=== PATIENT | female | born 1980 | race American Indian/Alaskan Native ===

== ENCOUNTER 2024-03-31 22:23 | Emergency (ER) | payer BC, SELFPAY ==
[2024-03-31 22:24] VITALS: BMI 42.0
[2024-03-31 22:33] VITALS: BP 136/89; PULSE 102; RESP 19; TEMP 37.3; O2SAT 97
--- NOTE | 2024-03-31 23:14 | XR_ITS ---
Examination: PA lateral chest 2 views Technique: Upright PA lateral chest 2 views Exam date and time: March 31, 2024 11:20 PM Comparison July 29, 2023 Indications: Onset chest pain today Findings: Mild prominence left ventricle No pneumonia or pulmonary edema The osseous structures are intact Impression: Mild prominence left ventricle No pneumonia or pulmonary edema
--- NOTE | 2024-03-31 23:15 | PD.EDRME ---
Rapid Medical Screening Exam RME Arrival date/time: 03/31/24 22:23 43-year-old female with past medical history of fibromyalgia presents emergency department complaining of chest pain and palpitations that started this morning. Chief Complaint: Arrhythmia/Palpitations Vital signs: Vital Signs Temperature 99.2 F 03/31/24 22:33 Pulse Rate 102 H 03/31/24 22:33 Respiratory Rate 19 03/31/24 22:33 Blood Pressure 136/89 H 03/31/24 22:33 Pulse Oximetry (%) 97 03/31/24 22:33 Oxygen Delivery Method Room Air 03/31/24 22:33 Vital signs reviewed by provider: Yes
[2024-04-01 00:16] LABS: Basophils % (Auto) 0 % (0-2.5); Eosinophils # (Auto) 0.2 Thou/mm3 (0.0-0.5); Eosinophils % (Auto) 2 % (0-10); Hematocrit 39.5 % (36.0-46.0); Hemoglobin 13.8 g/dL (12.0-16.0); Immature Granulocytes % (Auto) 0 % (0-0); Immature Granulocytes Auto 0.02 Thou/mm3 (0.00-0.00); Lymphocytes # (Auto) 1.8 Thou/mm3 (1.0-4.8); Lymphocytes % (Auto) 24 % (10-50); Mean Corpuscular HGB Conc 34.9 g/dl (31.0-37.0); Mean Corpuscular Hemoglobin 30.7 pg (25.0-35.0); Mean Corpuscular Volume 88 fL (80-100); Monocytes # (Auto) 0.7 Thou/mm3 (0.0-0.8); Monocytes % (Auto) 9 % (0-12); Neutrophils # (Auto) 4.8 Thou/mm3 (1.8-7.7); Neutrophils % (Auto) 64 % (37-80); Nucleated Red Blood Cell % 0 /100 WBC (0); Platelet Count 271 Thou/mm3 (140-440); RDW Standard Deviation 39.8 fL (36.4-46.3); White Blood Count 7.5 Thou/mm3 (3.6-11.0)
[2024-04-01 00:24] VITALS: BP 141/96; PULSE 89; RESP 19; TEMP 37.2; O2SAT 99
[2024-04-01 00:45] LABS: Alanine Aminotransferase 10 U/L (10-49); Albumin, Serum 4.4 gm/dL (3.5-5.0); Albumin/Globulin Ratio 1.3 (1.2-2.2); Alkaline Phosphatase 64 U/L (46-116); Anion Gap 7 (7-16); Aspartate Amino Transferase 12 U/L (0-34); BUN/Creatinine Ratio 14 Ratio (12-20); Bilirubin,Total 0.3 mg/dL (0.3-1.2); Blood Urea Nitrogen 7 mg/dL (9-23); Calcium 9.7 mg/dL (8.3-10.6); Calcium (Corrected) 9.7 mg/dL (8.5-10.1); Carbon Dioxide 23.2 mMol/L (20.0-31.0); Chloride 107 mMol/L (98-107); Creatinine (Component) 0.5 mg/dL (0.6-1.3); Estimated Creatinine Clearance 150.3 mL/min (>60); Globulin 3.3 gm/dL (2.3-3.5); Glucose 101 mg/dL (74-106); Osmolality,Calculated 271 (275-295); Potassium 3.8 mMol/L (3.4-5.1); Sodium 137 mMol/L (136-145); Total Protein 7.7 gm/dL (5.7-8.2); Troponin I < 0.020 ng/mL (0.0-0.045); eGFR > 60 See Note
[2024-04-01 00:48] LABS: HCG,Qualitative Serum Negative
[2024-04-01 00:53] LABS: B-Type Natriuretic Peptide < 20 pg/mL (0-100)
[2024-04-01 00:57] LABS: LDH (Lactate Dehydrogenase) 108 U/L (120-246)
--- NOTE | 2024-04-01 01:34 | EDNOTE_ITS ---
ED Arrhythmia Palp. RME/HPI General Chief Complaint: Arrhythmia/Palpitations Stated Complaint: CHEST PAIN, PALPITATIONS Arrival date/time: 03/31/24 22:23 RME / HPI RME / HPI narrative: 03/31/24 22:23 43-year-old female with past medical history of fibromyalgia presents emergency department complaining of chest pain and palpitations that started this morning. ----- Dr. Griffith?s Main ED Evaluation: 43yo female presents to the ED for a chief complaint of palpitations x 1 day. Patient states her heart rate has been elevated at 119 and was concerned, so she came in for evaluation. She reports associated chest pain and a headache. She denies any shortness of breath, dizziness or any other associated symptoms. No known allergies. Patient states she feels better compared to when she initially came in. Related Data Allergies Allergy/AdvReac Type Severity Reaction Status Date / Time No Known Allergies Allergy Verified 12/30/23 01:30 Review of Systems Review of Systems Systems Reviewed: All systems reviewed, normal except as documented Narrative Review of Systems: Gen: No fever, no chills, no weight loss EYES: No discharge, no visual changes, no pain HEENT: No ear pain, no congestion, no sore throat PULM: No shortness of breath, no cough, no congestion CV: + chest pain, no dyspnea on exertion, + palpitations GI: No nausea, no vomiting, no diarrhea, no pain, no constipation : No frequency, no urgency, no dysuria Musc/skel: No joint pain, no back pain Skin: No rash Psyc: No hallucinations, no depression Heme/Lymph: No easy bleeding or bruising tendencies Neuro: No weakness, + headache Past Medical History Past Medical History CARDIAC: Positive Angina; Negative Cardiac Disorders or Congestive Heart Failure RESPIRATORY: Negative Chronic Obstructive Pulmonary Disease (COPD) or Asthma GASTROINTESTINAL: Positive Obesity GENITOURINARY: Negative Renal Disease ENDOCRINE: Negative Diabetes Mellitus Type 1 or Diabetes Mellitus Type 2 HEMATOLOGIC: Negative Sickle Cell Disease PSYCHO/SOCIAL: Positive Anxiety Social History SMOKING STATUS: Never smoker SUBSTANCE USE: does not use ED Exam Narrative Physical exam: GENERAL APPEARANCE: AxOx4, generally well-appearing, no acute distress. HEENT: NC, AT. MMM. EOMI, clear conjunctiva, oropharynx clear. NECK: Supple without lymphadenopathy. No stiffness or restricted ROM. HEART: Normal rate and regular rhythm, normal S1/S1, no m/r/g LUNGS: CTAB, moving air well. No crackles or wheezes are heard. ABDOMEN: Soft, nontender, nondistended with good bowel sounds heard. BACK: No midline C/T/L spine pain or deformity, No CVAT, no obvious deformity. EXTREMITIES: Without cyanosis, clubbing or edema. MUSCULOSKELETAL: FROM of all major joints, no chest tenderness NEUROLOGICAL: Grossly nonfocal. Alert and oriented, moving all 4 extremities. CN not formally tested but appear grossly intact. Observed to ambulate with normal gait. Skin: Warm and dry without any rash. Course Course Course Narrative: CXR is ordered for determining the etiology of palpitations. Quality Measures none Orders Category Date Time Status Bedside COVID-19 Antigen Test NOW Care 03/31/24 23:15 Active Bedside Influenza A&B Antigen Test NOW Care 03/31/24 23:15 Active EKG (ED ONLY) *Do not use* NOW Care 03/31/24 22:28 Completed EKG (ED Only) Stat Exams 03/31/24 22:28 Ordered XR chest 2V Stat Exams 03/31/24 23:14 Completed B-Type Natriuretic Peptide Stat Lab 03/31/24 23:55 Completed CBC Stat Lab 03/31/24 23:55 Completed Comprehensive Metabolic Panel Stat Lab 03/31/24 23:55 Completed Drug Screen,Urine Stat Lab 03/31/24 23:14 Ordered HCG,Qualitative Serum Stat Lab 03/31/24 23:55 Completed LDH (Lactate Dehydrogenase) Stat Lab 03/31/24 23:55 Completed Magnesium Stat Lab 03/31/24 23:55 Completed Partial Thromboplastin Time Stat Lab 03/31/24 23:55 Received Prothrombin Time with INR Stat Lab 03/31/24 23:55 Received Troponin I Stat Lab 03/31/24 23:55 Completed Urinalysis, C/S if Indicated Stat Lab 03/31/24 23:14 Ordered Vital Signs Vital signs: Vital Signs Temperature 99.2 F 03/31/24 22:33 Pulse Rate 102 H 03/31/24 22:33 Respiratory Rate 19 03/31/24 22:33 Blood Pressure 136/89 H 03/31/24 22:33 Pulse Oximetry (%) 97 03/31/24 22:33 Oxygen Delivery Method Room Air 03/31/24 22:33 Pulse ox is 97% on room air, which is normal according to my interpretation. Arrhythmia/Palpitations MDM Narrative MDM Narrative:: Scribe Attestation: I, June Joya, am scribing for and in the presence of Dr. Griffith. Patient data External records reviewed:: [facility] previous records (Per chart review, patient was seen here on 01/30/24 for the same complaint.) Clinical information provided by:: patient Social determinants that could affect healthcare access:: none Patient has the following chronic illnesses:: fibromyalgia How is presenting disease/condition affected by chronic disease/condition?: uneffected by Evaluation data The following diagnostics were reviewed and interpreted by me:: lab results, radiology exam(s) and EKG tracing(s) Lab and/or radiology exams considered but not ordered:: none Interpretation Summary: CBC is normal, CMP is normal, troponin is normal, magnesium is normal, HCG is negative, according to my interpretation. EKG done at 2232 shows sinus tachycardia, rate of 108, normal axis, normal intervals, no acute ST or T wave changes, no STEMI, according to my interpretation. ----- [facility] Report Signed Patient: KAMRAN PURDY Record#: [id number] Birthdate: 1980 Age/Sex: 43 / F Location: [facility] Attending Dr: Ordering Physician: Santana Epstein (FNP) Date of Service: 03/31/24 Procedure(s): XR chest 2V Accession Number(s): [id number] cc: Kalin Kenny MD; Santana Epstein (FNP)~ Examination: PA lateral chest 2 views Technique: Upright PA lateral chest 2 views Exam date and time: March 31, 2024 11:20 PM Comparison July 29, 2023 Indications: Onset chest pain today Findings: Mild prominence left ventricle No pneumonia or pulmonary edema The osseous structures are intact Impression: Mild prominence left ventricle No pneumonia or pulmonary edema Dictated By: Kalin Kenny MD Signed By: <Electronically signed by Kalin Kenny MD in [place]> 03/31/24 1181 Medications / Prescriptions Medications or Prescriptions considered but not ordered:: none Medication administrations:: none Consultations Consultation(s) initiated? (list below): No Diagnosis Differential diagnosis arrhythmia/palpitations: anxiety, sinus tachycardia, artial fibrillation and supraventricular tachycardia Most likely diagnosis given after review of the tests above:: see below Admission Indicated Admission indicated?: not indicated Admission Request Was there a request for admission?: No Disposition Plan Disposition Plan: Discharge Discharge Attestation Discharge Attestation: The patient and all family members were given an opportunity to ask questions and understood the discharge instructions. Discharge instructions specifically effects, indications for sooner follow up or return to the emergency department, and the expected course of current diagnosis. Patient condition: Stable Discharge Plan Plan Patient Disposition: HOME (Self Care) Prescriptions/Referrals Referrals: Jaye Mathis MD [Primary Care Provider] - In 1 week Problem List Clinical Impression: Heart palpitations Patient/Caregiver Discharge Instructions Education Materials: ED Palpitations Additional Instructions: Follow-up with your primary care doctor in 2 to 3 days for recheck. You can return to the emergency department sooner if symptoms worsen or if you notes any new, concerning issues. Print Language: Citizen Of [place] Stand Alone Forms: Michelle Award Info., Patient Portal Info Letter
[2024-04-01 01:36] LABS: Partial Thromboplastin Time 30.2 Seconds (22.0-36.0); Prothrombin Time 10.9 Seconds (9.0-12.2)
== END 2024-04-01 01:41 | disposition home or self-care (01) ==
PROVIDERS: Emergency Provider Emergency Medicine; PCP Internal Medicine
DX: R00.2 Palpitations (principal); R07.9 Chest pain, unspecified; R00.0 Tachycardia, unspecified
CPT/HCPCS: 36415; 71046; 80053; 80307; 81001; 83615; 83735; 83880; 84484; 84703; 85025; 85610; 85730; 93005; 99283

== ENCOUNTER 2024-05-23 02:53 | Emergency (ER) | payer BC, SELFPAY ==
[2024-05-23 02:54] VITALS: BMI 41.5
[2024-05-23 03:10] VITALS: BP 150/95; PULSE 67; RESP 18; TEMP 36.6; O2SAT 100
--- NOTE | 2024-05-23 03:13 | PD.EDRME ---
Rapid Medical Screening Exam RME Arrival date/time: 05/23/24 02:53 43 year old female present to ED for c/o of chest pain I have greeted and performed a focused initial assessment of this patient. A comprehensive ED assessment and evaluation of the patient, analysis of all test results, and completion of the medical decision making process will be conducted by additional ED providers. Chief Complaint: Chest Pain Time Seen by Provider: 05/23/24 03:01 Vital signs: Vital Signs Temperature 97.9 F 05/23/24 03:10 Pulse Rate 67 05/23/24 03:10 Respiratory Rate 18 05/23/24 03:10 Blood Pressure 150/95 H 05/23/24 03:10 Pulse Oximetry (%) 100 05/23/24 03:10 Oxygen Delivery Method Room Air 05/23/24 03:10
--- NOTE | 2024-05-23 03:14 | XR_ITS ---
Examination: PA lateral chest 2 views Technique: Upright PA lateral chest 2 views Exam date and time: May 23, 2024 0350 hrs. Comparison March 31, 2024 Indications: Onset chest pain today. Findings: Minimal prominence left ventricle Mild vascular congestion No lobar pneumonia or pulmonary edema Impression: Mild vascular congestion
[2024-05-23] MEDS: ASPIRIN 81 MG CHEW 324 MG PO (03:38)
[2024-05-23 03:58] LABS: Basophils # (Auto) 0.1 Thou/mm3 (0.0-0.2); Basophils % (Auto) 1 % (0-2.5); Eosinophils # (Auto) 0.3 Thou/mm3 (0.0-0.5); Eosinophils % (Auto) 3 % (0-10); Hematocrit 37.8 % (36.0-46.0); Hemoglobin 12.6 g/dL (12.0-16.0); Immature Granulocytes % (Auto) 0 % (0-0); Immature Granulocytes Auto 0.02 Thou/mm3 (0.00-0.00); Lymphocytes # (Auto) 3.8 Thou/mm3 (1.0-4.8); Lymphocytes % (Auto) 38 % (10-50); Mean Corpuscular HGB Conc 33.3 g/dl (31.0-37.0); Mean Corpuscular Hemoglobin 30.1 pg (25.0-35.0); Mean Corpuscular Volume 90 fL (80-100); Monocytes # (Auto) 0.7 Thou/mm3 (0.0-0.8); Monocytes % (Auto) 8 % (0-12); Neutrophils % (Auto) 51 % (37-80); Nucleated Red Blood Cell % 0 /100 WBC (0); Platelet Count 314 Thou/mm3 (140-440); RDW Standard Deviation 41.3 fL (36.4-46.3); Red Blood Count 4.19 Miln/mm3 (4.00-5.20); White Blood Count 9.9 Thou/mm3 (3.6-11.0)
[2024-05-23 04:25] LABS: Alanine Aminotransferase 15 U/L (10-49); Albumin, Serum 4.3 gm/dL (3.5-5.0); Albumin/Globulin Ratio 1.4 (1.2-2.2); Alkaline Phosphatase 56 U/L (46-116); Anion Gap 6 (7-16); Aspartate Amino Transferase 13 U/L (0-34); BUN/Creatinine Ratio 15 Ratio (12-20); Bilirubin,Total 0.2 mg/dL (0.3-1.2); Blood Urea Nitrogen 9 mg/dL (9-23); Calcium 9.9 mg/dL (8.3-10.6); Calcium (Corrected) 9.9 mg/dL (8.5-10.1); Carbon Dioxide 29.2 mMol/L (20.0-31.0); Chloride 104 mMol/L (98-107); Creatinine (Component) 0.6 mg/dL (0.6-1.3); Estimated Creatinine Clearance 124.6 mL/min (>60); Globulin 3.1 gm/dL (2.3-3.5); Glucose 106 mg/dL (74-106); Lipase 39 U/L (12-53); Osmolality,Calculated 276 (275-295); Potassium 3.8 mMol/L (3.4-5.1); Sodium 139 mMol/L (136-145); Total Protein 7.4 gm/dL (5.7-8.2); Troponin I < 0.020 ng/mL (0.0-0.045); eGFR > 60 See Note
[2024-05-23 04:44] LABS: HCG,Qualitative Serum Negative
--- NOTE | 2024-05-23 07:29 | EDNOTE_ITS ---
ED Chest Pain RME/HPI General Chief Complaint: Chest Pain Stated Complaint: CHEST PAIN Time Seen by Provider: 05/23/24 03:01 Arrival date/time: 05/23/24 02:53 RME / HPI RME / HPI narrative: 05/23/24 02:53 43 year old female present to ED for c/o of chest pain I have greeted and performed a focused initial assessment of this patient. A comprehensive ED assessment and evaluation of the patient, analysis of all test results, and completion of the medical decision making process will be conducted by additional ED providers. DR. JENN MENDOZA ED EVALUATION: 43 year old female presents to the Emergency Department with complaint of chest pain onset 2 days. Pain is intermittent, described as burning, sometimes pressure and rated 6-7/10 now. Pain radiates to her back. Patient also reports abdominal pain. Took Tums for pain, but no relief. Patient denies any of the following: nausea, vomiting, cough, congestion, or any other symptoms at this time. PMHx: Fibromyalgia, prediabetic, anxiety. Cholecystectomy. Social Hx: No tobacco, alcohol, or substance use. Related Data Previous Rx's ?Medication ?Instructions ?Recorded famotidine 40 mg tablet (Pepcid) 40 mg PO QDAY #30 tabs 05/23/24 Allergies Allergy/AdvReac Type Severity Reaction Status Date / Time No Known Allergies Allergy Verified 05/23/24 02:56 Review of Systems Review of Systems Systems Reviewed: All systems reviewed, normal except as documented Narrative Review of Systems: GEN: No fever, no chills, no weight loss EYES: No discharge, no visual changes, no pain HEENT: No ear pain, no congestion, no sore throat PULM: No shortness of breath, no cough, no congestion CV: + chest pain, no dyspnea on exertion, no palpitations GI: No nausea, no vomiting, no diarrhea, + abdominal pain, no constipation : No frequency, no urgency and no dysuria MUSC/SKEL: No joint pain, + back pain (from radiation) SKIN: No rash PSYCH: No hallucinations, no depression HEME/LYMPH: No easy bleeding or bruising tendencies NEURO: No weakness, no headache Past Medical History Past Medical History CARDIAC: Positive Angina PSYCHO/SOCIAL: Positive Anxiety Social History SMOKING STATUS: Never smoker SUBSTANCE USE: does not use ALCOHOL: Never ED Exam Narrative Physical exam: GENERAL APPEARANCE: Well hydrated, well nourished, in no acute distress. Appears a little anxious, but cooperative and very polite. VITALS: All vitals were reviewed and the pulse ox is 100% on room air which is normal according to my interpretation. HEENT: Normocephalic, atramatic, EOMI, EACs are patent. There is no bulge or retraction. Throat without erythema or exudate. Moist oromucosa. No jaundice NECK: Supple, no JVD or bruits. CARDIOVASCULAR: Heart regular without S3-S4 or murmur. No rubs or gallops. LUNGS/CHEST: Clear to auscultation bilaterally. No rales, rhonchi, or wheezing. Normal inspection. ABDOMEN: Soft, nontender, with normal bowel sounds. No pulsatile masses. No rebound, rigidity, or guarding. No incarcerated hernia. Normal inspection and palpation. EXTREMITIES: No edema, clubbing, or cyanosis. Intact CSM. Normal inspection and palpation. SKIN: Warm and dry without rashes. Normal inspection. MUSCULOSKELETAL: No gross deformity, full ROM all extremities. Normal inspection. NEURO: Alert and oriented x3. Cranial nerves II through XII grossly intact. There are no other motor or sensory deficits noted. PSYCHIATRIC: Normal mood and affect. No psychosis. Course Quality Measures none Orders Category Date Time Status EKG (ED ONLY) *Do not use* NOW Care 05/23/24 03:14 Completed EKG (ED Only) Stat Exams 05/23/24 03:14 Ordered XR chest 2V Stat Exams 05/23/24 03:14 Taken CBC Stat Lab 05/23/24 03:43 Completed CMP [Comprehensive Metabolic Panel] Stat Lab 05/23/24 03:43 Completed HCG,Qualitative Serum Stat Lab 05/23/24 03:43 Completed Lipase Stat Lab 05/23/24 03:43 Completed Mag [Magnesium] Stat Lab 05/23/24 03:43 Completed Troponin I Stat Lab 05/23/24 03:43 Completed Troponin I Stat Lab 05/23/24 07:04 Completed Aspirin Chew Med 05/23/24 03:14 Discontinued 324 mg PO X1 ONE Vital Signs Vital signs: Vital Signs Temperature 97.9 F 05/23/24 03:10 Pulse Rate 67 05/23/24 03:10 Respiratory Rate 18 05/23/24 03:10 Blood Pressure 150/95 H 05/23/24 03:10 Pulse Oximetry (%) 100 05/23/24 03:10 Oxygen Delivery Method Room Air 05/23/24 03:10 Chest Pain MDM Narrative MDM Narrative:: I, Susanne Reyes, am scribing for and in the presence of Dr. Fuentes. CBC is negative. CMP and lipase negative. Troponin negative twice. Magnesium negative. test is negative. Twelve-lead EKG that was done at 3:18 AM and interpreted by me: Normal sinus rhythm. Heart rate of 62. No ST elevation or depression. No PVC. No STEMI. Regular rate and rhythm. 2 view chest x-ray interpreted by me: Clear lungs. Heart normal. Mediastinum normal. Normal bones. Her symptomatology is suggestive of a gastric reflux. She said that she has been taking Tums with no improvement. But I will give her Maalox or Mylanta and Pepcid. She need to follow-up with PMD for further evaluation and care. Return to the emergency department if condition worsens or if new symptoms develop. There is no sign of PE. The patient is not hypoxic. And not tachycardic. Patient data External records reviewed:: [facility] previous records (Reviewed last ED visit dated 04/01/24, discharged with the following: Heart palpitations.) Clinical information provided by:: patient Social determinants that could affect healthcare access:: none Patient has the following chronic illnesses:: Fibromyalgia, prediabetic, anxiety. Cholecystectomy. How is presenting disease/condition affected by chronic disease/condition?: exacerbated by Evaluation data The following diagnostics were reviewed and interpreted by me:: lab results, radiology exam(s) and EKG tracing(s) Lab and/or radiology exams considered but not ordered:: none Interpretation Summary: See above under MDM narrative. Medications / Prescriptions Medications or Prescriptions considered but not ordered:: none Medication administrations:: Medication Administration History Discontinued Medications Aspirin (Aspirin 81 Mg Chew) 324 mg PO X1 ONE Stop: 05/23/24 03:15 Last Admin: 05/23/24 03:38 Dose: 324 mg Documented By: HIGINIO see above Consultations Consultation(s) initiated? (list below): No Diagnosis Most likely diagnosis given after review of the tests above:: Gastroesophageal reflux Admission Indicated Admission indicated?: not indicated Admission Request Was there a request for admission?: No Disposition Plan Disposition Plan: Discharge Discharge Attestation Discharge Attestation: The patient and all family members were given an opportunity to ask questions and understood the discharge instructions. Discharge instructions specifically effects, indications for sooner follow up or return to the emergency department, and the expected course of current diagnosis. Patient condition: Stable Discharge Plan Plan Patient Disposition: HOME (Self Care) Disposition Comment: Stable for DC home Prescriptions/Referrals Prescriptions/Med Rec: New famotidine [Pepcid] 40 mg tablet 40 mg PO QDAY Qty: 30 0RF Referrals: Jaye Mathis MD [Primary Care Provider] - In 1 week Problem List Clinical Impression: Atypical chest pain Patient/Caregiver Discharge Instructions Education Materials: ED Chest Pain, Uncertain Cause Additional Instructions: Continue Mylanta or Maalox for stomach ache. Take Pepcid as prescribed. See your doctor for recheck and further care in 3 days. Return to nearest ER if condition worsens or if new symptoms develop. Print Language: [place] Stand Alone Forms: Michelle Award Info., Patient Portal Info Letter
[2024-05-23 07:40] LABS: Troponin I < 0.020 ng/mL (0.0-0.045)
[2024-05-23] MEDS: MG HYD/AL HYD/SIME (Maalox Reg) SUSP 30 ML UDC PO (08:08)
[2024-05-23 08:13] VITALS: BP 135/87; PULSE 67; RESP 19; TEMP 36.7; O2SAT 98
== END 2024-05-23 08:34 | disposition home or self-care (01) ==
PROVIDERS: Physician Assistant; Emergency Provider Emergency Medicine; PCP Internal Medicine
DX: R07.89 Other chest pain (principal); R10.9 Unspecified abdominal pain
CPT/HCPCS: 36415; 71046; 80053; 83690; 83735; 84484; 84703; 85025; 93005; 99283; A9270

== ENCOUNTER → 2024-06-24 | Outpatient (CLI) | payer BC, SELFPAY ==
--- NOTE | 2024-06-24 07:00 | EKG_ITS ---
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
[2024-06-24 15:46] LABS: Basophils # (Auto) 0.1 Thou/mm3 (0.0-0.2); Basophils % (Auto) 1 % (0-2.5); Eosinophils # (Auto) 0.2 Thou/mm3 (0.0-0.5); Eosinophils % (Auto) 3 % (0-10); Hematocrit 37.2 % (36.0-46.0); Hemoglobin 12.5 g/dL (12.0-16.0); Immature Granulocytes % (Auto) 0 % (0-0); Immature Granulocytes Auto 0.03 Thou/mm3 (0.00-0.00); Lymphocytes # (Auto) 2.6 Thou/mm3 (1.0-4.8); Lymphocytes % (Auto) 31 % (10-50); Mean Corpuscular HGB Conc 33.6 g/dl (31.0-37.0); Mean Corpuscular Hemoglobin 30.6 pg (25.0-35.0); Mean Corpuscular Volume 91 fL (80-100); Monocytes # (Auto) 0.4 Thou/mm3 (0.0-0.8); Monocytes % (Auto) 5 % (0-12); Neutrophils # (Auto) 5.1 Thou/mm3 (1.8-7.7); Neutrophils % (Auto) 61 % (37-80); Nucleated Red Blood Cell % 0 /100 WBC (0); Platelet Count 336 Thou/mm3 (140-440); RDW Standard Deviation 43.2 fL (36.4-46.3); Red Blood Count 4.09 Miln/mm3 (4.00-5.20); White Blood Count 8.3 Thou/mm3 (3.6-11.0)
[2024-06-24 15:52] LABS: Anion Gap 11 (7-16); BUN/Creatinine Ratio 17 Ratio (12-20); Blood Urea Nitrogen 10 mg/dL (9-23); Calcium 8.9 mg/dL (8.3-10.6); Carbon Dioxide 24.9 mMol/L (20.0-31.0); Chloride 107 mMol/L (98-107); Creatinine (Component) 0.6 mg/dL (0.6-1.3); Glucose 133 mg/dL (74-106); Osmolality,Calculated 285 (275-295); Partial Thromboplastin Time 27.5 Seconds (22.0-36.0); Potassium 3.8 mMol/L (3.4-5.1); Prothrombin Time 10.9 Seconds (9.0-12.2); Sodium 143 mMol/L (136-145); eGFR > 60 See Note
[2024-06-24 16:16] LABS: HCG,Qualitative Serum Positive
== END | disposition home or self-care (01) ==
LOC: SLAB 10-08 06:20
PROVIDERS: PCP Internal Medicine; Referring Provider Internal Medicine; Visit Provider Internal Medicine
DX: I25.10 Atherosclerotic heart disease of native coronary artery without angina pectoris (principal); I48.91 Unspecified atrial fibrillation; R07.89 Other chest pain
CPT/HCPCS: 36415; 80048; 84703; 85025; 85610; 85730; 93005

== ENCOUNTER → 2024-06-25 | Outpatient (CLI) | payer BC, SELFPAY ==
[2024-06-25 10:12] LABS: Collection Type, Urine Clean Catch
[2024-06-25 10:27] LABS: Basophils % (Auto) 1 % (0-2.5); Eosinophils # (Auto) 0.2 Thou/mm3 (0.0-0.5); Eosinophils % (Auto) 3 % (0-10); Hemoglobin 13.1 g/dL (12.0-16.0); Immature Granulocytes % (Auto) 0 % (0-0); Immature Granulocytes Auto 0.02 Thou/mm3 (0.00-0.00); Lymphocytes # (Auto) 2.5 Thou/mm3 (1.0-4.8); Lymphocytes % (Auto) 31 % (10-50); Mean Corpuscular HGB Conc 33.6 g/dl (31.0-37.0); Mean Corpuscular Hemoglobin 30.3 pg (25.0-35.0); Mean Corpuscular Volume 90 fL (80-100); Monocytes # (Auto) 0.5 Thou/mm3 (0.0-0.8); Monocytes % (Auto) 6 % (0-12); Neutrophils # (Auto) 4.9 Thou/mm3 (1.8-7.7); Neutrophils % (Auto) 60 % (37-80); Nucleated Red Blood Cell % 0 /100 WBC (0); Platelet Count 335 Thou/mm3 (140-440); Red Blood Count 4.33 Miln/mm3 (4.00-5.20); White Blood Count 8.1 Thou/mm3 (3.6-11.0)
[2024-06-25 10:32] LABS: Bilirubin,Urine Negative (Negative); Blood,Urine Negative (Negative); Clarity,Urine Clear (Clear/Hazy); Color,Urine Lt-Yellow (Lt Yel-Yel); Glucose, Urine Negative (Negative); Ketones,Urine Negative (Negative); Leukocyte Esterase,Urine Negative (Negative); Nitrite,Urine Negative (Negative); PH,Urine 6.5 (5.0-7.0); Protein,Urine Negative (Neg - Trace); RBC,Urine 1 /hpf (0-3); Specific Gravity,Urine 1.017 (1.001-1.035); Squamous Epithelial Cell,Urine 3 /hpf (0-5); Urobilinogen,Urine Negative mg/dL (0.0-1.0); WBC,Urine 1 /hpf (0-5)
[2024-06-25 10:38] LABS: Glucose Estimated Average 120 mg/dL (80-131); Hemoglobin A1C 5.8 % Hgb (4.8-6.0)
[2024-06-25 10:42] LABS: HCG,Qualitative Serum Positive
[2024-06-25 11:04] LABS: Alanine Aminotransferase 15 U/L (10-49); Albumin/Globulin Ratio 1.4 (1.2-2.2); Alkaline Phosphatase 49 U/L (46-116); Anion Gap 7 (7-16); Aspartate Amino Transferase 15 U/L (0-34); BUN/Creatinine Ratio 16 Ratio (12-20); Beta HCG,Quantitative 1048 mIU/mL (<5.0); Bilirubin,Total 0.4 mg/dL (0.3-1.2); Blood Urea Nitrogen 8 mg/dL (9-23); Carbon Dioxide 25.2 mMol/L (20.0-31.0); Cardiac Risk Estimate 3.6 RATIO (3.7-5.6); Chloride 106 mMol/L (98-107); Cholesterol 163 mg/dL (132-200); Creatinine (Component) 0.5 mg/dL (0.6-1.3); Globulin 2.9 gm/dL (2.3-3.5); Glucose 95 mg/dL (74-106); HDL Cholesterol 45 mg/dL (40-60); LDL Cholesterol,Calculated 107 mg/dL (0-130); Osmolality,Calculated 273 (275-295); Potassium 4.2 mMol/L (3.4-5.1); Sodium 138 mMol/L (136-145); Thyroid Stimulating Hormone 1.58 uIU/mL (0.55-4.78); Total Protein 6.9 gm/dL (5.7-8.2); Triglycerides 56 mg/dL (30-150); eGFR > 60 See Note
== END | disposition home or self-care (01) ==
LOC: COPL 09:29
PROVIDERS: PCP Internal Medicine; Referring Provider Internal Medicine; Visit Provider Internal Medicine
DX: Z00.00 Encounter for general adult medical examination without abnormal findings (principal)
CPT/HCPCS: 36415; 80053; 80061; 81001; 83036; 84443; 84702; 84703; 85025

== ENCOUNTER 2024-07-13 16:33 | Emergency (ER) | payer BC, SELFPAY ==
[2024-07-13 17:28] VITALS: BP 138/87; PULSE 81; RESP 18; TEMP 36.6; O2SAT 98; BMI 37.0
--- NOTE | 2024-07-13 17:34 | XR_ITS ---
Examination: Complete OB ultrasound, less than 14 weeks, transabdominal Date and time of exam: July 13, 2024 1831 hrs. Indications: Vaginal bleeding and pelvic cramping beginning 4 days ago, diagnosis June 25, 2024 Technique: Obstetrical ultrasound images less than 14 weeks performed via transabdominal imaging Findings: Uterus 13.1 x 6.1 x 8.1 cm No intrauterine gestation Prominent lower uterine segment endometrial stripe Right ovary 2.4 cm arterial flow Left ovary 2.5 cm arterial flow Fundal endometrial stripe 6 mm Impression: Suspicious for retained products of conception in the lower uterine segment Advise short-term follow-up transvaginal pelvic sonography
--- NOTE | 2024-07-13 17:38 | EDNOTE_ITS ---
<Statement entered by Renetta Billingsley MD - 07/14/24 01:46> As co-signing physician, I was present and available for consult prn. I concur with the plan and care as documented by the midlevel provider. ED OB Contraction Preg RMI/HPI General Chief complaint: Vaginal Bleeding Stated complaint: VAG BLEEDING, LOWER ABD CRAMPS, LOWER BACK PAIN Time Seen by Provider: 07/13/24 17:01 Arrival date/time: 07/13/24 16:33 43-year-old female approximately 8 weeks gestation reports with complaints of vaginal bleeding and pelvic cramping that began 2 days ago. Patient denies any fever chills dysuria urinary urgency frequency or lower back pain. Patient also denies abdominal trauma. Patient denies taking any medications Limitations: no limitations Related Data Previous Rx's ?Medication ?Instructions ?Recorded famotidine 40 mg tablet (Pepcid) 40 mg PO QDAY #30 tab s 05/23/24 Allergies Allergy/AdvReac Type Severity Reaction Status Date / Time No Known Allergies Allergy Verified 05/23/24 02:56 Review of Systems Constitutional Constitutional: Denies chills and Denies fever(s) Cardiovascular Cardiovascular: Denies chest pain, Denies dyspnea and Denies irregular heart rhythm Respiratory Respiratory: Denies cough and Denies dyspnea Musculoskeletal Musculoskeletal: Denies back pain and Denies myalgias Integumentary/Breasts Skin/Breast: Denies unusual bruising and Denies wounds Hematologic/Lymphatic Hematologic/Lymphatic: Denies easy bleeding and Denies easy bruising Past Medical History Past Medical History CARDIAC: Positive Angina; Negative Cardiac Disorders or Congestive Heart Failure RESPIRATORY: Negative Chronic Obstructive Pulmonary Disease (COPD) or Asthma GASTROINTESTINAL: Positive Obesity GENITOURINARY: Negative Renal Disease ENDOCRINE: Negative Diabetes Mellitus Type 1 or Diabetes Mellitus Type 2 HEMATOLOGIC: Negative Sickle Cell Disease PSYCHO/SOCIAL: Positive Anxiety Social History SMOKING STATUS: Never smoker SUBSTANCE USE: does not use ED Exam General Limitations: Present no limitations General appearance: Present alert and in no apparent distress Chest Chest inspection: Present normal inspection and symmetric chest wall rise Respiratory Respiratory exam: Present normal lung sounds bilaterally Cardiovascular Cardiovascular exam: Present regular rate, normal rhythm and normal heart sounds Abdominal Exam Abdominal exam: Present soft and normal bowel sounds External exam: Present normal external exam Speculum exam: Present vaginal bleeding Bimanual exam: Present normal bimanual exam; Absent cervical motion tenderness, adnexal tenderness or adnexal mass Extremities Exam Extremities exam: Present normal inspection and full ROM Back Exam Back exam: Present normal inspection and full ROM Neurological Exam Neurological exam: Present alert, oriented X3 and CN II-XII intact Psychiatric Psychiatric exam: Present normal affect and normal mood Skin Skin exam: Present warm, dry, intact and normal color Course Course Course Narrative: 43-year-old female G4, P3 approximately 8 weeks gestation reports with complaint of pelvic cramps and vaginal bleeding. Ultrasound indicates retained products of conception beta-hCG of 57 indicative of miscarriage patient is stable nontoxic-appearing with stable vital signs she will be discharged home advised to follow-up in 48 hours with PCP OB or return to the hospital. She is also advised when to return to the emergency department. Patient verbalized understanding Quality Measures none Orders Category Date Time Status Pelvic Exam X1 Care 07/13/24 17:34 Active US OB <= 14 weeks fetus Stat Exams 07/13/24 17:34 Completed Beta HCG,Quantitative Stat Lab 07/13/24 17:46 Completed Chlamydia/GC/TV - PCR Stat Lab 07/13/24 18:08 Received UA, C/S IF [Urinalysis, C/S if Indicated] Stat Lab 07/13/24 18:08 Completed Urine Culture Stat Lab 07/13/24 18:08 Received Vital Signs Vital signs: Vital Signs Temperature 97.9 F 07/13/24 17:28 Pulse Rate 81 07/13/24 17:28 Respiratory Rate 18 07/13/24 17:28 Blood Pressure 138/87 H 07/13/24 17:28 Pulse Oximetry (%) 98 07/13/24 17:28 Oxygen Delivery Method Room Air 07/13/24 17:28 Vaginal Bleeding Patient data External records reviewed:: None Clinical information provided by:: patient Social determinants that could affect healthcare access:: none Patient has the following chronic illnesses:: none How is presenting disease/condition affected by chronic disease/condition?: no chronic disease Evaluation data The following diagnostics were reviewed and interpreted by me:: lab results and radiology exam(s) Lab and/or radiology exams considered but not ordered:: none Interpretation Summary: Ultrasound indicates retained products of conception beta hCG indicative of spontaneous Medications / Prescriptions Medications or Prescriptions considered but not ordered:: none Medication administrations:: none Consultations Consultation(s) initiated? (list below): No Diagnosis Vaginal Bleeding Differential Diagnosis: missed , threatened , dysfunctional uterine bleeding and incomplete Most likely diagnosis given after review of the tests above:: Retained products of conception Admission Indicated Admission indicated?: not indicated Explain why admission is indicated or not indicated:: Patient is nontoxic-appearing with stable vital signs Admission Request Was there a request for admission?: No Disposition Plan Disposition Plan: Discharge Discharge Attestation Discharge Attestation: The patient and all family members were given an opportunity to ask questions and understood the discharge instructions. Discharge instructions specifically effects, indications for sooner follow up or return to the emergency department, and the expected course of current diagnosis. Patient condition: Stable Discharge Plan Plan Patient Disposition: HOME (Self Care) Prescriptions/Referrals Prescriptions/Med Rec: No Action famotidine [Pepcid] 40 mg tablet 40 mg PO QDAY Qty: 30 0RF Referrals: Jaye Mathis MD [Primary Care Provider] - 07/15/24 Problem List Clinical Impression: Retained products of conception Patient/Caregiver Discharge Instructions Discharge Activity: activity as tolerated Additional Instructions: Give plenty of rest hydrate well follow-up with your primary care provider or [facility] in 48 hours. Return to the emergency department if you develop severe pain severe bleeding fever or chills Print Language: Nepali Stand Alone Forms: Michelle Award Info., Patient Portal Info Letter
[2024-07-13 18:16] LABS: Collection Type, Urine Clean Catch
[2024-07-13 18:20] LABS: Beta HCG,Quantitative 57 mIU/mL (<5.0)
[2024-07-13 18:44] LABS: Bacteria,Urine Rare; Bilirubin,Urine Negative (Negative); Blood,Urine 3+ (Negative); Clarity,Urine Clear (Clear/Hazy); Color,Urine Colorless (Lt Yel-Yel); Glucose, Urine Negative (Negative); Ketones,Urine Negative (Negative); Leukocyte Esterase,Urine Positive (Negative); Nitrite,Urine Negative (Negative); PH,Urine 6.5 (5.0-7.0); Protein,Urine 1+ (Neg - Trace); RBC,Urine 48 /hpf (0-3); Specific Gravity,Urine 1.005 (1.001-1.035); Squamous Epithelial Cell,Urine 2 /hpf (0-5); Urobilinogen,Urine Negative mg/dL (0.0-1.0); WBC,Urine 11 /hpf (0-5)
[2024-07-13 18:48] LABS: Culture Indicated,Urine Yes
[2024-07-14 16:42] LABS: Chlamydia trachomatis PCR Negative (Not Detect); Neisseria Gonorrhoeae DNA PCR Negative (Not Detect); Trichomonas Negative (Negative)
== END 2024-07-13 20:18 | disposition home or self-care (01) ==
PROVIDERS: Physician Assistant; Emergency Provider Emergency Medicine; PCP Internal Medicine
DX: O03.4 Incomplete spontaneous abortion without complication (principal)
CPT/HCPCS: 36415; 76801; 81001; 84702; 87086; 87491; 87591; 87661; 99284

== ENCOUNTER → 2024-07-22 | Outpatient (CLI) | payer BC, SELFPAY ==
--- NOTE | 2024-07-22 15:43 | XR_ITS ---
Examination: Complete OB ultrasound, less than 14 weeks, transabdominal Date and time of exam: July 22, 2024 1554 hours INDICATIONS: Status post spontaneous July 13, 2024 Technique: Obstetrical ultrasound images less than 14 weeks performed via transabdominal imaging Findings: Uterus 14.3 cm fundal endometrial stripe 0.6 cm Retained products of conception in the lower uterine segment, 4.71 x 1.5 x 1.9 cm No intrauterine gestation Right ovary 2.8 cm arterial flow Left ovary 2.3 cm arterial flow IMPRESSION: Positive for retained product of conception
== END | disposition home or self-care (01) ==
PROVIDERS: PCP Internal Medicine; Referring Provider Internal Medicine; Visit Provider Internal Medicine
DX: O03.4 Incomplete spontaneous abortion without complication (principal)
CPT/HCPCS: 76801

== ENCOUNTER → 2024-07-23 | Outpatient (CLI) | payer BC, SELFPAY ==
[2024-07-23 16:17] LABS: Beta HCG,Quantitative 2 mIU/mL (<5.0)
[2024-08-03 07:17] LABS: Progesterone,LC/MS* <0.1 ng/mL
== END | disposition home or self-care (01) ==
LOC: SLDO 15:21
PROVIDERS: Referring Provider Specialist; Visit Provider Specialist
DX: O36.80X0 Pregnancy with inconclusive fetal viability, not applicable or unspecified (principal)
CPT/HCPCS: 36415; 84144; 84702

== ENCOUNTER 2024-09-10 04:55 | Emergency (ER) | payer BC, SELFPAY ==
[2024-09-10 04:58] VITALS: BMI 43.0
[2024-09-10 05:08] VITALS: BP 149/88; PULSE 82; RESP 16; TEMP 36.9; O2SAT 96
--- NOTE | 2024-09-10 06:02 | PD.EDANX ---
ED Anxiety RME/HPI General Chief Complaint: Chest Pain Stated Complaint: CHEST PAIN, NAUSEA, HEART BEATING FAST, Time Seen by Provider: 09/10/24 05:57 Arrival date/time: 09/10/24 04:55 43F with history of DM and likely anxiety/panic disorder (but no diagnosis and no psych meds before) presents to ED with several hours of CP, N/V, SOB, and heart palps. Patient also has had 3 days of intermittent facial numbness. 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 Patient's facial numbness has been present since some accident she had a year ago. Patient has had many benign cardiac work-ups, cardiology tests like stress tests and Holter monitors, as well as nerve tests with neurologist. Patient also had benign head CT and MRI last year. Patient was supposed to have a heart cath but cancelled. Limitations: no limitations Related Data Previous Rx's ?Medication ?Instructions ?Recorded famotidine 40 mg tablet (Pepcid) 40 mg PO QDAY #30 tabs 05/23/24 Allergies Allergy/AdvReac Type Severity Reaction Status Date / Time No Known Allergies Allergy Verified 09/10/24 04:58 Review of Systems Review of Systems Systems Reviewed: All systems reviewed, normal except as documented Constitutional Constitutional: Reports system reviewed and no additional complaints, except as documented, Denies fever(s) and Denies headache(s) ENT Ears, Nose, Mouth, and Throat: Denies disequilibrium and Denies headache(s) Cardiovascular Cardiovascular: Reports system reviewed and no additional complaints, except as documented, Reports as per HPI, Reports chest pain and Reports dyspnea Respiratory Respiratory: Reports system reviewed and no additional complaints, except as documented, Denies cough and Reports dyspnea Gastrointestinal Gastrointestinal: Reports system reviewed and no additional complaints, except as documented, Reports as per HPI, Denies abdominal pain, Reports nausea and Reports vomiting Musculoskeletal Musculoskeletal: Reports tingling Neurologic Neurologic: Reports system reviewed and no additional complaints, except as documented, Reports as per HPI, Denies confusion, Denies disequilibrium, Denies headache(s) and Reports tingling Psychiatric Psychiatric: Denies confusion Past Medical History Past Medical History CARDIAC: Positive Angina; Negative Cardiac Disorders or Congestive Heart Failure RESPIRATORY: Negative Chronic Obstructive Pulmonary Disease (COPD) or Asthma GASTROINTESTINAL: Positive Obesity GENITOURINARY: Negative Renal Disease ENDOCRINE: Negative Diabetes Mellitus Type 1 or Diabetes Mellitus Type 2 HEMATOLOGIC: Negative Sickle Cell Disease PSYCHO/SOCIAL: Positive Anxiety Social History SMOKING STATUS: Never smoker SUBSTANCE USE: does not use ED Exam General Limitations: Present no limitations General appearance: Present alert, in no apparent distress and anxious Head Head exam: Present atraumatic Eye Eye exam: Present normal appearance, PERRL and EOMI ENT ENT exam: Present normal exam, normal oropharynx and mucous membranes moist Neck Neck exam: Present normal inspection, full ROM and trachea midline Chest Chest inspection: Present normal inspection and symmetric chest wall rise Respiratory Respiratory exam: Present normal lung sounds bilaterally Cardiovascular Cardiovascular exam: Present regular rate, normal rhythm and normal heart sounds Abdominal Exam Abdominal exam: Present soft and normal bowel sounds Extremities Exam Extremities exam: Present normal inspection and full ROM Back Exam Back exam: Present normal inspection and full ROM Neurological Exam Neurological exam: Present alert, oriented X3 and CN II-XII intact Psychiatric Psychiatric exam: Present normal affect and normal mood Skin Skin exam: Present warm, dry, intact and normal color Course Quality Measures none Orders Category Date Time Status EKG (ED ONLY) *Do not use* NOW Care 09/10/24 05:01 Completed EKG (ED Only) Stat Exams 09/10/24 05:01 Ordered Vital Signs Vital signs: Vital Signs Temperature 98.5 F 09/10/24 05:08 Pulse Rate 82 09/10/24 05:08 Respiratory Rate 16 09/10/24 05:08 Blood Pressure 149/88 H 09/10/24 05:08 Pulse Oximetry (%) 96 09/10/24 05:08 Oxygen Delivery Method Room Air 09/10/24 05:08 Anxiety MDM Narrative MDM Narrative: 43F with history of DM and likely anxiety/panic disorder (but no diagnosis and no psych meds before) presents to ED with several hours of CP, N/V, SOB, and heart palps. Patient also has had 3 days of intermittent facial numbness. 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 Patient's facial numbness has been present since some accident she had a year ago. Patient has had many benign cardiac work-ups, cardiology tests like stress tests and Holter monitors, as well as nerve tests with neurologist. Patient also had benign head CT and MRI last year. Patient was supposed to have a heart cath but cancelled. Physical exam reveals normal pupil response and EOM. CN II-XII grossly intact. Gait normal. Strength equal bilaterally. Normal WOB. Lungs clear. RRR. Speech normal. Patient is afebrile, alert, but anxious. EKG is NSR. Through shared decision-making, no further tests at this time given previous history and extensive outpatient work-up. 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 Counseled to ask PCP about possible referral to psychiatrist and/or counseling/meds. Patient is amenable. Patient data External records reviewed:: [facility] previous records Clinical information provided by:: patient Social determinants that could affect healthcare access:: mental health Patient has the following chronic illnesses:: DM and likely anxiety/panic disorder How is presenting disease/condition affected by chronic disease/condition?: exacerbated by Evaluation data The following diagnostics were reviewed and interpreted by me:: EKG tracing(s) Lab and/or radiology exams considered but not ordered:: ordered Interpretation Summary: above Medications / Prescriptions Medications or Prescriptions considered but not ordered:: not ordered Medication administrations:: n/a Consultations Consultation(s) initiated? (list below): No Diagnosis Differential diagnosis anxiety: hyperventilation, panic disorder and acute anxiety Most likely diagnosis given after review of the tests above:: panic disorder Admission Indicated Admission indicated?: not indicated Admission Request Was there a request for admission?: No Disposition Plan Disposition Plan: Discharge Discharge Attestation Discharge Attestation: The patient and all family members were given an opportunity to ask questions and understood the discharge instructions. Discharge instructions specifically effects, indications for sooner follow up or return to the emergency department, and the expected course of current diagnosis. Patient condition: Stable Discharge Plan Plan Patient Disposition: HOME (Self Care) Disposition Comment: Stable Prescriptions/Referrals Prescriptions/Med Rec: No Action famotidine [Pepcid] 40 mg tablet 40 mg PO QDAY Qty: 30 0RF Problem List Clinical Impression: Panic disorder Patient/Caregiver Discharge Instructions Education Materials: Understanding Panic Disorder ... Additional Instructions: Please follow-up with PCP within 24-48 hours and return immediately if symptoms worsen. Print Language: Mozambican Stand Alone Forms: Patient Portal Info Letter IVAN/AKBAR Supervising Physician IVAN/AKBAR Supervising Physician: Dr. Beaulieu
== END 2024-09-10 06:05 | disposition home or self-care (01) ==
LOC: SERX 07:03
PROVIDERS: Emergency Provider Emergency Medicine; PCP Internal Medicine
DX: F41.0 Panic disorder [episodic paroxysmal anxiety] (principal); E11.9 Type 2 diabetes mellitus without complications
CPT/HCPCS: 93005; 99283

== ENCOUNTER 2024-11-05 06:39 | Day surgery (SDC) | payer BC, SELFPAY ==
[2024-11-04 09:49] VITALS: BMI 43.0
--- NOTE | 2024-11-04 12:46 | EKG_ITS ---
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
[2024-11-04 13:39] LABS: Basophils # (Auto) 0.1 Thou/mm3 (0.0-0.2); Basophils % (Auto) 1 % (0-2.5); Eosinophils # (Auto) 0.2 Thou/mm3 (0.0-0.5); Eosinophils % (Auto) 3 % (0-10); Hematocrit 37.9 % (36.0-46.0); Hemoglobin 13.4 g/dL (12.0-16.0); Immature Granulocytes % (Auto) 0 % (0-0); Immature Granulocytes Auto 0.03 Thou/mm3 (0.00-0.00); Lymphocytes # (Auto) 2.6 Thou/mm3 (1.0-4.8); Lymphocytes % (Auto) 33 % (10-50); Mean Corpuscular HGB Conc 35.4 g/dl (31.0-37.0); Mean Corpuscular Hemoglobin 30.9 pg (25.0-35.0); Mean Corpuscular Volume 88 fL (80-100); Monocytes # (Auto) 0.6 Thou/mm3 (0.0-0.8); Monocytes % (Auto) 8 % (0-12); Neutrophils # (Auto) 4.5 Thou/mm3 (1.8-7.7); Neutrophils % (Auto) 56 % (37-80); Nucleated Red Blood Cell % 0 /100 WBC (0); Platelet Count 300 Thou/mm3 (140-440); Red Blood Count 4.33 Miln/mm3 (4.00-5.20)
[2024-11-04 13:46] LABS: HCG,Qualitative Serum Negative
[2024-11-04 13:47] LABS: Partial Thromboplastin Time 30.7 Seconds (22.0-36.0); Prothrombin Time 10.9 Seconds (9.0-12.2)
[2024-11-04 13:49] LABS: COVID-19 Antigen (In-House) Negative (Negative)
[2024-11-04 13:51] LABS: Anion Gap 8 (7-16); BUN/Creatinine Ratio 13 Ratio (12-20); Blood Urea Nitrogen 9 mg/dL (9-23); Calcium 9.3 mg/dL (8.3-10.6); Carbon Dioxide 24.7 mMol/L (20.0-31.0); Chloride 106 mMol/L (98-107); Creatinine (Component) 0.7 mg/dL (0.6-1.3); Estimated Creatinine Clearance 108.8 mL/min (>60); Glucose 89 mg/dL (74-106); Osmolality,Calculated 275 (275-295); Potassium 4.3 mMol/L (3.4-5.1); Sodium 139 mMol/L (136-145); eGFR > 60 See Note
[2024-11-05] VITALS (14 sets, daily range): BP systolic 106–128; BP diastolic 62–87; PULSE 68–80; RESP 12–21; TEMP 36.5–36.9; O2SAT 95–99
--- NOTE | 2024-11-05 08:25 | PD.CARDCATH ---
Cardiac Cath Procedure Procedure Narrative Procedure date 11/05/2024 Title of the procedure 1.left heart catheterization 2.left coronary angiogram 3.left ventriculogram 4.right coronary angiogram 5.conscious sedation 6.radiographic interpretation supervision 7.right radial ultrasound for access Indication for the procedure 43-year-old female with past medical history of borderline hypertension Obesity complains of recurrent anterior chest pain Cardiolite scan was equivocal Cardiac catheter and cholangiogram recommended Procedure This is done in the cardiac lab under current electrocardiographic monitoring intermittent blood pressure monitoring With the ultrasound guidance 6 [place] sheath was placed in the right radial artery TIG 4 catheter used for selective injection of the left coronary artery TIG 4 catheter was used for selective injection of the right coronary artery TIG 4 catheter was used for left ventriculogram Findings Hemodynamics Overall left ventricular systolic function appears normal Approximate ejection fraction 60% End-diastolic pressure was 18 mmHg There is no gradient across the aortic valve Coronary anatomy 1.left main coronary artery appears normal 2.left anterior descending artery does not seem to have any significant lesion 3.right coronary is a dominant vessel 4.left circumflex does not seem to have any significant lesion 5.obtuse marginal appears to have luminal regularities Conclusion No significant coronary lesion continue medical treatment
--- NOTE | 2024-11-05 08:49 | PC.NURSE ---
0831 patient is awake, alert, breathing unlabored, s/p LHC by Dr. Chirinos, TR band present to right wrist, no bleeding or hematoma noted. Report received from Kevin MAURICIO, patient to recover for 3 hours and 1hr post TR band removal.
--- NOTE | 2024-11-05 10:38 | PC.NURSE ---
0930 1ml air removed from TR band since hemostasis time 08. No bleeding or hematoma noted 1030 TR band removed, no bleeding or hematoma noted, site covered with tegaderm and coban.
--- NOTE | 2024-11-05 13:18 | PC.NURSE ---
1143 patient is awake, alert, breathing unlabored, dressing to right wrist dry with no bleeding or hematoma. patient able to tolerate food tray with no nausea or vomiting, able to ambulate to bathroom and void, meets discharge criteria, discharge instrucitons given to patient and spouse, patient discharged home in wheelchair with all belongings.
== END 2024-11-05 11:43 | disposition home or self-care (01) ==
PROVIDERS: PCP Internal Medicine; Referring Provider Internal Medicine; Visit Provider Internal Medicine
PROC: (CPT 93458; principal; 2024-11-05 07:30)
DX: R07.89 Other chest pain (principal); E66.9 Obesity, unspecified; Z01.810 Encounter for preprocedural cardiovascular examination; Z68.41 Body mass index [BMI] 40.0-44.9, adult
CPT/HCPCS: 93458; 36415; 80048; 84703; 85025; 85610; 85730; 87811; 93005; 99152; A4216; A4649; C1769; C1887; C1894; J0171; J0461; J0583; J1643; J2250; J2310; J2371; J3010; J3490; A9270; J2305